=== PATIENT | male | born 1995 | race Caucasian/White ===

== ENCOUNTER 2016-11-05 20:36 | Emergency (ER) | payer SELFPAY ==
[~2016-11-05] VITALS: Ht 180.3 cm; Wt 64.9 kg
[~2016-11-05 20:36] MED LIST: DOCU-30 PO; OXYC-302 PO
[2016-11-05 20:43] VITALS: BP 129/84
== END 2016-11-05 21:01 | disposition left against medical advice (07) ==
LOC: ED 20:55
DX: S69.92XA Unspecified injury of left wrist, hand and finger(s), initial encounter (principal); Z53.21 Procedure and treatment not carried out due to patient leaving prior to being seen by health care provider; X58.XXXA Exposure to other specified factors, initial encounter; Y93.89 Activity, other specified; Y99.0 Civilian activity done for income or pay; Y92.89 Other specified places as the place of occurrence of the external cause